=== PATIENT | female | born 1975 | race Asian ===

== ENCOUNTER 2017-08-09 22:29 | Emergency (ER) | payer MEDICAID ==
[~2017-08-09] VITALS: Ht 157.5 cm; Wt 54.4 kg
[2017-08-09 22:29] VITALS: BP_SYST 108
[2017-08-09] MEDS ORDERED: FOLIC ACID 1 MG, THIAMINE HCL 100 MG, MAGNESIUM SULFATE 1 GM, MVI 10 ML in NACL 0.9% 1,... IV ONE (22:45)
[2017-08-09] MEDS ORDERED: ONDANSETRON HCL 4 MG/2 ML VIAL IVP ONE (22:45)
[2017-08-09] MEDS ORDERED: FOLIC ACID 5 MG/ML VIAL IV ONE (22:56)
[2017-08-09] MEDS ORDERED: THIAMINE HCL 100 MG/ML VIAL ONE (22:56)
[2017-08-09] MEDS ORDERED: MAGNESIUM SULFATE 1 GM/2 ML VIAL ONE (22:56)
[2017-08-09] MEDS ORDERED: MVI 10 ML VIAL IV ONE (22:56)
[2017-08-10 01:37] VITALS: BP_SYST 110
== END 2017-08-10 01:37 | disposition home or self-care (01) ==
LOC: SED 22:29
DX: F10.129 Alcohol abuse with intoxication, unspecified (principal); F32.9 Major depressive disorder, single episode, unspecified
CPT/HCPCS: 81025; 96365; 96366; 99285; J2405; J3411; J3475; J3490